=== PATIENT | female | born 1945 | race Caucasian/White ===

== ENCOUNTER → 2017-08-02 | Outpatient (CLI) | payer OTHER ==
[~2017-08-02] MED LIST: ASPEC81 PO; HCTZ; OTC DECONGESTANT; POTASSIUM; SYN125 PO
[2017-08-02 13:48] LABS: ALT/SGPT 18 U/L (12-78); BLOOD UREA NITROGEN 25 mg/dl (7-18); BUN/CREATININE RATIO 31.8 (10-20); CALCIUM 8.7 mg/dl (8.5-10.1); CARBON DIOXIDE 28 mmol/L (21-32); CHLORIDE 107 mmol/L (98-107); CHOLESTEROL 165 mg/dl (0-200); CREATININE 0.77 mg/dl (0.60-1.20); GLUCOSE 88 mg/dl (70-99); POTASSIUM 3.6 mmol/L (3.5-5.1); SODIUM 140 mmol/L (136-145); TRIGLYCERIDES 69 mg/dl (0-150); VERY LOW DENSITY LIPOPROT CALC 14 mg/dl
[2017-08-02 13:59] LABS: CHOLESTEROL/HDL RATIO 2.2; HDL CHOLESTEROL 76 mg/dl
== END | disposition home or self-care (01) ==
LOC: C.LABMFLN 09:21
PROVIDERS: ATTEND Family Medicine
DX: Z00.00 Encounter for general adult medical examination without abnormal findings (principal); I10 Essential (primary) hypertension; M81.0 Age-related osteoporosis without current pathological fracture; E03.9 Hypothyroidism, unspecified; E55.9 Vitamin D deficiency, unspecified

== ENCOUNTER → 2017-08-29 | Outpatient (CLI) | payer OTHER ==
--- NOTE | 2017-08-30 07:36 | MAMMOGRAPHY REPORT ---
BILATERAL DIGITAL SCREENING MAMMOGRAM WITH CAD: 08/29/2017 CLINICAL HISTORY: Routine screening. Patient has no complaints. TECHNIQUE: Bilateral CC and MLO views were obtained. Current study was also evaluated with a Compute r Aided Detection (CAD) system. COMPARISON: Comparison is made to exams dated: 08/17/2016 mammogram, 08/04/2015 mammogram - [facility], 01/16/2007, 01/04/2013 mammogram, 01/15/2013 ultrasound, and 07/23/2013 mammogram - [facility]. BREAST COMPOSITION: There are scattered areas of fibroglandular density in both breasts. FINDINGS: There is a stable focal asymmetry in the central right breast. No new suspicious mass, arc hitectural distortion or cluster of microcalcifications is seen bilaterally. IMPRESSION: ACR BI-RADS CATEGORY 1: NEGATIVE There is no mammographic evidence of malignancy. A 1 year screening mammogram is recommended. The pa tient will receive written notification of the results. Approximately 10% of breast cancers are not detected with mammography. A negative mammographic report should not delay biopsy if a clinically suggestive mass is present. Alanis Willingham M.D. ay/:08/29/2017 15:26:20 Weld Technician: Dorothy GARCIA(Lucie)(Alicia), [facility] letter sent: Normal 1/2 BI-RADS Code: ACR BI-RADS Category 1: Negative
== END | disposition home or self-care (01) ==
LOC: C.MAMM 14:18
PROVIDERS: ATTEND Family Medicine
DX: Z12.31 Encounter for screening mammogram for malignant neoplasm of breast (principal)